=== PATIENT | female | born 1955 | race Hispanic/Latino ===

== ENCOUNTER → 2023-10-30 | Outpatient (CLI) | payer OTHER | END | disposition home or self-care (01) | LOC: SHCH 09:22 | PROVIDERS: ATTEND Internal Medicine | DX: R01.1 Cardiac murmur, unspecified (principal) | CPT/HCPCS: 93306 ==

== ENCOUNTER → 2023-12-05 | Outpatient (CLI) | payer OTHER ==
[2023-12-05 22:14] VITALS: PULSE 71; RESP 12
[2023-12-05 22:38] VITALS: PULSE 67; RESP 20
[2023-12-05 23:06] VITALS: PULSE 76; RESP 18
[2023-12-05 23:39] VITALS: PULSE 75; RESP 16
[2023-12-06] VITALS (10 sets, daily range): PULSE 62–95; RESP 12–22
== END | disposition home or self-care (01) ==
LOC: SLP 20:04
PROVIDERS: ATTEND Internal Medicine
DX: G47.33 Obstructive sleep apnea (adult) (pediatric) (principal)
CPT/HCPCS: 95810